=== PATIENT | male | born 1975 | race Caucasian/White ===

== ENCOUNTER 2020-10-09 09:39 | Emergency (ER) | payer BC ==
[2020-10-09 09:48] VITALS: BP 138/89; TEMP 97.4; O2SAT 99
[2020-10-09] MEDS ORDERED: SULFA/TRIMETH 800/160 (DS) TAB 1 EA TAB PO ONE (10:13)
--- NOTE | 2020-10-09 10:15 | ED.PDOC ---
History of Present Illness - General Chief Complaint: Upper Extremity Injury Stated Complaint: left thumb avulsion Time Seen by Provider: 10/09/20 10:12 Source: patient Exam Limitations: no limitations - History of Present Illness Initial Comments: The patient is a 45-year-old male presented emergency room after having cut the tip of his left thumb with a box maker paperboard knife. The laceration almost shaved completely off in a diagonal the tip of his left thumb. No bone exposure. He will have an area of decreased sensation at the near amputated tissue. Estimated blood loss prior to arrival was probably 5 cc. Timing/Duration: 1/2 hour Severity: moderate Improving Factors: nothing Worsening Factors: nothing Allergies/Adverse Reactions: Allergies NO KNOWN ALLERGY Allergy (Verified 10/09/20 09:48) Home Medications: Ambulatory Orders Sulfa/Trimeth 800/160 (Ds) Tab [Bactrim DS Tab] 1 ea PO BID #6 tab 10/09/20 Review of Systems - Review of Systems Constitutional: States: no symptoms reported EENTM: States: no symptoms reported Respiratory: States: no symptoms reported Cardiology: States: no symptoms reported Gastrointestinal/Abdominal: States: no symptoms reported Genitourinary: States: no symptoms reported Musculoskeletal: States: no symptoms reported Skin: States: see HPI Neurological: States: see HPI Endocrine: States: no symptoms reported All other Systems: No Change from Baseline Past Medical History (General) - Patient Medical History Hx Asthma: No Hx Cardiac Disorders: No Hx Hypertension: No Hx Diabetes: No Surgical History: no surgical history - Vaccination History Hx Tetanus, Diphtheria Vaccination: Yes - Social History Hx Tobacco Use: No Hx Alcohol Use: Yes - occ Hx Substance Use: No Hx Substance Use Treatment: No Hx Depression: No Family Medical History - Family History Mother Family History: No Known Physical Exam - Physical Exam General Appearance: Alert, Comfortable, No apparent distress Eye Exam: bilateral normal Ears, Nose, Throat: hearing grossly normal Neck: full range of motion Respiratory: no respiratory distress, no accessory muscle use Cardiovascular/Chest: normal peripheral pulses Peripheral Pulses: radial,right: 2+, radial,left: 2+ Gastrointestinal/Abdominal: other - Obese Rectal Exam: deferred Back Exam: no CVA tenderness, no vertebral tenderness Extremity: normal range of motion, no pedal edema, normal capillary refill Neurologic: air director II-XII nml as tested, alert, normal mood/affect, oriented x 3, other - See history of present illness Skin Exam: other - See history of present illness Comments: Vital Signs - 24 hr 10/09/20 09:45 Temperature 97.4 F L Pulse Rate [ 74 monitor] Respiratory 18 Rate Blood Pressure 138/89 [RA] O2 Sat by Pulse 99 Oximetry Progress - Progress Progress: 10/09/20 10:15 The patient is a 45-year-old male presented emergency room secondary to a laceration to the tip of the left thumb. The patient is likely to have an area of numbness at the tip of the thumb from now on. He should be aware of that. 2 simple sutures of 4-0 Prolene were used for anchoring of the tissue. He needs to keep it covered with a Band-Aid and Neosporin ointment. He will be written for 3 days of oral Bactrim to prevent any infection. He can wash it twice daily with antibacterial soap and water. ER warnings are given. Sutures need to come out in 10 to 12 days. - Results/Orders Results/Orders: Procedure note: Risk and benefits of repair were explained. Wound is irrigated with water for 5 minutes and then cleaned further with hydrogen peroxide. 2 simple sutures of 4-0 Prolene were placed to anchor the tissue back in place. Triple antibiotic ointment and Band-Aid were applied. Estimated blood loss in total is 5 cc. Departure - Departure Clinical Impression: Laceration of thumb Qualifiers: Encounter type: initial encounter Damage to nail status: without damage Foreign body presence: without foreign body Laterality: left Qualified Code(s): S61.012A - Laceration without foreign body of left thumb without damage to nail, initial encounter Disposition: Discharge to Home or Self Care Condition: Fair Departure Forms: ED Discharge - Pt. Copy, Patient Portal Self Enrollment Instructions: DI for Arm Pain, Laceration Repair Diet: regular diet Activity: increase activity as tolerated Prescriptions: Sulfa/Trimeth 800/160 (Ds) Tab [Bactrim DS Tab] 1 ea PO BID #6 tab Home Medications: Ambulatory Orders Sulfa/Trimeth 800/160 (Ds) Tab [Bactrim DS Tab] 1 ea PO BID #6 tab 10/09/20 Additional Instructions: The patient is a 45-year-old male presented emergency room secondary to a laceration to the tip of the left thumb. The patient is likely to have an area of numbness at the tip of the thumb from now on. He should be aware of that. 2 simple sutures of 4-0 Prolene were used for anchoring of the tissue. He needs to keep it covered with a Band-Aid and Neosporin ointment. He will be written for 3 days of oral Bactrim to prevent any infection. He can wash it twice daily with antibacterial soap and water. ER warnings are given. Sutures need to come out in 10 to 12 days.
[2020-10-09] MEDS ORDERED: NEOMYCIN-BACITRACIN-POLYMYXIN 0.9 GM UD TOP ONE (10:35)
== END 2020-10-09 10:50 | disposition home or self-care (01) ==
LOC: ER 09:39
DX: S61.012A Laceration without foreign body of left thumb without damage to nail, initial encounter (principal); W26.0XXA Contact with knife, initial encounter; Y92.9 Unspecified place or not applicable